=== PATIENT | male | born 1995 | race Caucasian/White ===

== ENCOUNTER 2019-03-24 21:51 | Emergency (ER) | payer SELFPAY ==
[2019-03-25] MEDS ORDERED: DOXYCYCLINE HYCLATE 100 MG TABLET PO ONE (00:07)
[2019-03-25 00:45] VITALS: BP 125/61
--- NOTE | 2019-03-25 00:49 | ER Document Report ---
ED General - General Chief Complaint: Leg Pain Stated Complaint: RIGHT LEG SWELLING Time Seen by Provider: 03/24/19 23:48 TRAVEL OUTSIDE OF THE [place] IN LAST 30 DAYS: No - HPI Notes: Patient is a 23-year-old male who presents to the emergency department for evaluation of right leg redness and swelling. He states 2 days ago he noticed an area about the size of a quarter. He was on his right lower leg. He states that hurt, he denied any significant injury. He woke in the morning with it. It began to get more red and spread out, so he went to urgent care. He was diagnosed with cellulitis, started on clindamycin. He has had 3 doses total of clindamycin, earlier being earlier tonight. He states over that course, however, his redness is gotten worse. He denies any fevers or chills. No chest pain or shortness of breath. No nausea or vomiting. He states he is a cousin who had a blood clot so he was concerned about that possibility. - Related Data Home Medications: Clindamycin Past Medical History - General Information source: Patient - Social History Smoking Status: Never Smoker Chew tobacco use (# tins/day): No Frequency of alcohol use: None Drug Abuse: Marijuana Family History: Other - DVT in cousin Patient has suicidal ideation: No Patient has homicidal ideation: No Review of Systems - Review of Systems Constitutional: No symptoms reported EENT: No symptoms reported Cardiovascular: No symptoms reported Respiratory: No symptoms reported Gastrointestinal: No symptoms reported Genitourinary: No symptoms reported Musculoskeletal: No symptoms reported Skin: See HPI Neurological/Psychological: No symptoms reported Physical Exam - Vital signs Vitals: Temp Pulse Resp BP Pulse Ox 98.6 F 77 18 150/69 H 99 03/24/19 21:55 03/24/19 21:55 03/24/19 21:55 03/24/19 21:55 03/24/19 21:55 - Notes Notes: Vital signs reviewed, please refer to chart. Head is normocephalic, atraumatic. Pupils equal round, reactive to light. Neck is supple without meningismus. Heart is regular rate and rhythm. Lungs are clear to auscultation bilaterally. Abdomen is soft, nontender, normoactive bowel sounds throughout. Extremities without cyanosis, clubbing. Posterior calves are nontender. Peripheral pulses are equal. Examination of the right lower extremity yields a diffuse, [id number] erythema on the lateral aspect of the right calf, with central induration. Findings are most consistent with cellulitis. Negative Homans and Casper signs. Course - Re-evaluation Re-evalutation: 03/25/19 00:45 Patient presents emerged department for evaluation. His findings are most consistent with a cellulitis. I did go ahead and treat him with doxycycline, he is to discontinue the clindamycin. He is young and healthy, has only had less than 24 hours of the clindamycin. Again we will try new antibiotic, close follow-up. He is to follow-up with primary care, return to the emergency department with worsening or new concerning symptoms of any sort. 03/25/19 00:49 - Vital Signs Vital signs: Temp Pulse Resp BP Pulse Ox 98.6 F 77 18 150/69 H 99 03/24/19 21:55 03/24/19 21:55 03/24/19 21:55 03/24/19 21:55 03/24/19 21:55 - Diagnostic Test Radiology reviewed: Reports reviewed Discharge - Discharge Clinical Impression: Cellulitis of right lower leg Condition: Stable Disposition: HOME, SELF-CARE Instructions: Cellulitis (OM) Additional Instructions: Take doxycycline as directed until gone. If you develop fevers, vomiting, increased redness, chest pain or difficulty breathing, or any other new or concerning symptoms, return immediately to the emergency department for evaluation.
== END 2019-03-25 00:57 | disposition home or self-care (01) ==
LOC: ER 21:51
DX: L03.115 Cellulitis of right lower limb (principal); M79.604 Pain in right leg; M79.89 Other specified soft tissue disorders
CPT/HCPCS: 99283